=== PATIENT | male | born 1995 | race Two or more races ===

== ENCOUNTER 2025-03-02 17:34 | Emergency (ER) | payer MEDICAID, OTHER ==
[~2025-03-02] VITALS: Ht 172.7 cm; Wt 85.6 kg
--- NOTE | 2025-03-02 18:27 | ED.PDOC ---
Eye-HPI HPI Comments 30-YEAR-OLD MALE PRESENTS TO ER WITH COMPLAINTS OF PAINFUL SWALLOWING X 1 DAY. PATIENT IS PRESENT WITH MOTHER WITH PAST MEDICAL HISTORY SIGNIFICANT FOR AUTISM REPORTING THAT PATIENT STARTED EXPERIENCING PAINFUL SWALLOWING WHILE EATING A COOKIE AT 4:00 P.M. PRIOR TO ARRIVAL TO ER. DENIES CHOKING/SHORTNESS OF BREATH BUT STATES THAT PATIENT HAS BEEN ABLE TO SWALLOW LIQUIDS/SOLIDS WITHOUT DIFFICULTY SINCE ONSET OF SYMPTOMS. PATIENT PRESENTS TO ER AMBULATORY ON ARRIVAL, WITH STEADY GAIT, IN NO DISTRESS WITH VITALS STABLE. DENIES SHORTNESS OF BREATH, COUGH, NAUSEA/VOMITING OR ANY FURTHER SYMPTOMS/COMPLAINTS Chief Complaint: Allergic Reaction Time Seen by MD: 18:17 Primary Care Provider: UNKNOWN Reviewed Notes: Nurses Notes, Medications, Allergies Allergies: Coded Allergies: NO KNOWN ALLERGIES (Unverified , 05/21/14) Home Meds Active Scripts Prednisone (Prednisone) 20 Mg Tab, 20 MG PO BID for 5 Days, #10 TAB 0 Refills Prov:SADIQ RATLIFF 03/02/25 Ibuprofen (Ibuprofen) 800 Mg Tab, 1 TAB PO TID PRN, #30 TAB 0 Refills Prov:SADIQ RATLIFF 03/02/25 Amoxicillin & Pot Clavulanate (Amoxicillin/Potassium Cla) 875 Mg Tab, 1 TAB PO BID for 7 Days, #14 TAB 0 Refills Prov:SADIQ RATLIFF 03/02/25 Information Source: Patient (and patients brother) Mode of Arrival: Ambulatory Past Medical History Past Medical History (Other): Autism Surgical History: Denies all surgeries Family History Family History: Unknown Social History Smoker: Non-Smoker Alcohol: Denies ETOH Use Drugs: Denies Drug Use Lives In: Home Constitutional: denies: chills, diaphoresis, fatigue, fever, malaise, sweats, weakness, others EENTM: reports: others (As stated in HPI) Respiratory: denies: cough, hemoptysis, orthopnea, SOB at rest, shortness of breath, SOB with excertion, stridor, wheezing, others Cardiovascular: denies: chest pain, dizzy spells, diaphoresis, Dyspnea on exertion, edema, irregular heart beat, left arm pain, lightheadedness, palpitations, PND, syncope, others Gastrointestinal: denies: abdomen distended, abdominal pain, blood streaked bowels, constipated, diarrhea, dysphagia, difficulty swallowing, hematemesis, melena, nausea, poor appetite, poor fluid intake, rectal bleeding, rectal pain, vomiting, others Genitourinary: denies: burning, dysuria, flank pain, frequency, hematuria, incontinence, penile discharge, penile sore, pain, testicle pain, testicle swelling, urgency, others Neurological: denies: dizziness, fainting, headache, left sided numbness, left sided weakness, numbness, paresthesia, pre-existing deficit, right sided numbness, right sided weakness, seizure, speech problems, tingling, tremors, weakness, others Musculoskeletal: denies: back pain, gout, joint pain, joint swelling, muscle pain, muscle stiffness, neck pain, others Integumetry: denies: bruises, change in color, change in hair/nails, dryness, laceration, lesions, lumps, rash, wounds, others Allergic/Immunocompromised: denies: Difficulty Healing, Frequent Infections, Hives, Itching, others Hematologic/Lymphatic: denies: anemia, blood clots, easy bleeding, easy bruising, swollen glands, others Endocrine: denies: excessive hunger, excessive sweating, excessive thirst, excessive urination, flushing, intolerance to cold, intolerance to heat, unexplained weight gain, unexplained weight loss, others Psychiatric: denies: anxiety, bipolar disorder, depression, hopeless, panic disorder, schizophrenia, sleepless, suicidal, others Physical Exam General Appearance: No Apparent Distress HEENT: PERRL/EOMI, Pharyngeal Erythema (Mild tonsillar swelling/erythema noted bilaterally. Uvula-normal), TMs Normal Neck: Full Range of Motion, Non-Tender, Normal Respiratory: Chest Non-Tender, Lungs Clear, No Accessory Muscle Use, No Respiratory Distress, Normal Breath Sounds Cardiovascular: No Murmur, No Gallop, Regular Rate/Rhythm Breast Exam: Deferred Gastrointestinal: NOT DONE Genitalia: Deferred Pelvic: Deferred Rectal: Deferred Extremities: Normal capillary refill, Normal range of motion Neurologic: Alert, No Motor Deficits, Normal Affect, Normal Mood, No Sensory Deficits Cerebellar Function: Normal Reflexes: Normal Skin: Dry, Normal Color, Warm Peripheral Pulses: 2+ carotid (R), 2+ carotid (L), 2+ Radial (R), 2+ Radial (L), 2+ Brachial (R), 2+ Brachial (L) Lymphatic: No Adenopathy Was a procedure done? Was a procedure done?: No Sedation Sedation?: No EENT DIFF Eye: N/A Sore Throat: Epiglottitis, Mononeucleosis, Peritonsillar Abscess, Other (Foreign body) X-Ray, Labs, Meds, VS Vital Signs Date Time Temp Pulse Resp B/P (MAP) Pulse Ox O2 Delivery O2 Flow Rate FiO2 03/02/25 19:12 98.0 97 12 127/87 (100) 95 98.0 03/02/25 17:36 97.0 84 18 147/82 97 97.0 Current Medications Medications (Trade) Dose Ordered Sig/Soraida Route Start Time Stop Time Status Last Admin Methylprednisolone Sodium Succinate (Solu Medrol) 125 mg ONCE ONCE IM 03/02/25 18:30 03/02/25 18:31 DC 03/02/25 18:46 Ceftriaxone Sodium (Rocephin) 1,000 mg ONCE ONCE IM 03/02/25 18:30 03/02/25 18:31 DC 03/02/25 18:45 Rocephin 1 g IM ordered Solu-Medrol 125 mg IM ordered Patient tolerating p.o. intake well, well-appearing, vitals stable and in no distress prior to discharge Advised to drink plenty of fluids Advised to follow up with PCP in 1-2 days Plan of care discussed with patient and patient's adult brother who verbalized understanding agreeable with current plan of care Advised to return to ER immediately if symptoms worsen Time of 1ST Reevaluation: 18:04 Reevaluation 1ST: N/A Patient Education/Counseling: Diagnosis, Treatment, Prognosis, Need For Follow Up Family Education/Counseling: No Family Present SEPSIS Sepsis Screen Date sepsis recognized/suspect: Mar 02, 2025 Time Sepsis recognized/suspect: 1737 Recent Procedure: No On Antibiotic Therapy: No Respiratory Rate >20: No Heart Rate >90: No Temp<36 C (96.8 F) or >38.3 C: No SBP <90 or MAP <65 mmHG: No New Acute Mental Status Change: No Is the patient on CPAP, BIPAP,: No Vital Signs Date Time Temp Pulse Resp B/P (MAP) Pulse Ox O2 Delivery O2 Flow Rate FiO2 03/02/25 19:12 98.0 97 12 127/87 (100) 95 98.0 03/02/25 17:36 97.0 84 18 147/82 97 97.0 Medications Medications Dose Ordered Sig/Soraida Route Start Time Stop Time Status Last Admin Dose Admin Ceftriaxone Sodium 1,000 mg ONCE ONCE IM 03/02/25 18:30 03/02/25 18:31 DC 03/02/25 18:45 Methylprednisolone Sodium Succinate 125 mg ONCE ONCE IM 03/02/25 18:30 03/02/25 18:31 DC 03/02/25 18:46 Departure 1 Departure Time of Disposition: 18:26 Impression: Primary Impression: Acute tonsillitis Qualified Codes: J03.90 - Acute tonsillitis, unspecified Disposition: HOME / SELF CARE / HOMELESS Condition: Stable e-Prescriptions Prednisone (Prednisone) 20 Mg Tab 20 MG PO BID for 5 Days, #10 TAB 0 Refills Prov: SADIQ RATLIFF 03/02/25 Ibuprofen (Ibuprofen) 800 Mg Tab 1 TAB PO TID PRN, #30 TAB 0 Refills Prov: SADIQ RATLIFF 03/02/25 Amoxicillin & Pot Clavulanate (Amoxicillin/Potassium Cla) 875 Mg Tab 1 TAB PO BID for 7 Days, #14 TAB 0 Refills Prov: SADIQ RATLIFF 03/02/25 Discharged With: Relative (Mother) Critical Care Note Critical Care Time?: No Stability Stability form required: No Heart Score Heart Score: Heart Score Response (Comments) Value History N/A 0 EKG N/A 0 Age N/A 0 Risk Factors N/A 0 Troponin N/A 0 Total 0 SADIQ RATLIFF Mar 02, 2025 18:27
[2025-03-02] MEDS ORDERED: IBUP-1456 PO (18:29)
[2025-03-02] MEDS ORDERED: PRED20TA2 PO (18:29)
[2025-03-02] MEDS ORDERED: AMOX875T4 PO (18:29)
[2025-03-02] MEDS: cefTRIAXone SOD 1,000 MG VL IM ONE (18:45)
[2025-03-02] MEDS: methylPREDNISolone SOD SUCC 125 MG/2 ML VL IM ONE (18:46)
[2025-03-02 19:12] VITALS: BP 127/87; PULSE 97; RESP 12; TEMP 98; O2SAT 95
== END 2025-03-02 19:15 | disposition home or self-care (01) ==
LOC: ER 17:34
DX: J03.90 Acute tonsillitis, unspecified (principal); Z79.52 Long term (current) use of systemic steroids
CPT/HCPCS: 96372; 99284; J0696; J2919